=== PATIENT | female | born 1980 | race Caucasian/White ===

== ENCOUNTER 2022-03-20 10:33 | Outpatient (CLI) | payer BC | END 2022-03-20 10:34 | disposition home or self-care (01) | LOC: BICMAMMO 10:33 | PROVIDERS: ATTEND Family Medicine | DX: Z12.31 Encounter for screening mammogram for malignant neoplasm of breast (principal); M79.672 Pain in left foot | CPT/HCPCS: 77063; 77067 ==

== ENCOUNTER 2023-10-03 13:45 | Outpatient (CLI) | payer BC | END 2023-10-03 13:46 | disposition home or self-care (01) | LOC: BICRAD 13:45 | PROVIDERS: ATTEND Family Medicine | DX: R05.9 Cough, unspecified (principal); R06.02 Shortness of breath | CPT/HCPCS: 71046 ==

== ENCOUNTER 2025-03-06 12:55 | Emergency (ER) | payer BC ==
[2025-03-06] MEDS ORDERED: Ketorolac Tromethamine 30 MG (1 mL) VIAL ONE (16:04)
[2025-03-06] MEDS ORDERED: Dexamethasone 10 MG/ML VIAL ONE (16:04)
[2025-03-06] MEDS ORDERED: HYDROcodone/Acetaminophen 5/325 mg Tablet ONE (16:04)
== END 2025-03-06 17:12 | disposition home or self-care (01) ==
LOC: ERS 12:55
DX: S39.012A Strain of muscle, fascia and tendon of lower back, initial encounter (principal); X58.XXXA Exposure to other specified factors, initial encounter
CPT/HCPCS: 96372; 99283; J1100; J1885